=== PATIENT | male | born 1975 | race Caucasian/White ===

== ENCOUNTER → 2019-12-23 | Outpatient (CLI) | payer BC ==
--- NOTE | 2019-12-23 12:14 | Diagnostic Imaging Report ---
PROCEDURE: US Scrotum. TECHNIQUE: Multiple real-time grayscale images were obtained over the scrotum in various projections bilaterally. INDICATION: Left testicular swelling. Right testicle measures 4.7 x 2.4 x 2.7 cm and the left testicle measures 4.6 x 2.1 x 3.1 cm. Both testes demonstrate homogeneous echotexture. No discrete testicular mass is detected. There is blood flow to both testes. Right epididymis epididymis is unremarkable. There is a septated cystic mass superior to the left testicle in the region of the epididymal head measuring 7.3 x 3.1 x 4.6 cm. A trace hydrocele on the left is noted. No hydrocele on the right is seen. There is no varicocele. IMPRESSION: 1. No evidence of testicular mass or vascular compromise. 2. Large septated extratesticular cyst on the left, superior to the testicle suggestive of a large septated epididymal cyst. Dictated by: Dictated on workstation # [id number]
== END ==
LOC: RAD 09:33
PROVIDERS: ATTEND Family Medicine
DX: N44.2 Benign cyst of testis (principal)
CPT/HCPCS: 76870